=== PATIENT | male | born 1960 | race African-American/Black ===

== ENCOUNTER 2019-05-29 07:15 | Inpatient (IN) | payer MEDICAID ==
[~2019-05-29] VITALS: Ht 177.8 cm; Wt 68.0 kg
[2019-05-29] MEDS ORDERED: LEVETIRACETAM 1000MG/100ML 100 ML IV ONE (08:15)
[2019-05-29] MEDS ORDERED: HYDRALAZINE 20MG/ML VIAL IV ONE ×2 (08:15→14:00)
[2019-05-29 09:21] LABS: CHLORIDE 112 mEq/L (98-107)
[2019-05-29 09:34] LABS: ETHANOL BLOOD < 10 mg/dL; PHENOBARBITAL < 2.1 ug/mL (15.0-40.0); VALPROIC ACID < 3.0 ug/mL (50-100)
[2019-05-29 09:39] LABS: CARBAMAZEPINE < 0.5 ug/mL (4-12)
[2019-05-29] MEDS ORDERED: LORAZEPAM 2MG/ML CPJ IM STA (10:29)
[2019-05-29 10:50] LABS: BASOPHILS % 0.2 % (0.0-2.0); EOSINOPHILS % 0.1 % (0.0-5.0); HEMATOCRIT. 37.3 % (42.0-52.0); HEMOGLOBIN. 11.8 g/dL (14.0-18.0); LYMPHOCYTES % 13.9 % (20.0-50.0); MEAN CORPUSCULAR HEMOGLOBIN 25.5 pg (28.0-32.0); MEAN CORPUSCULAR VOLUME 80.4 fL (80.0-94.0); MEAN PLATELET VOLUME 9.9 fl (7.4-10.4); MONOCYTES % 6.8 % (2.0-8.0); RED BLOOD CELL COUNT 4.64 mill/uL (4.7-6.1); RED CELL DISTRIBUTION WIDTH 17.9 % (11.6-14.6)
[2019-05-29 10:51] LABS: PLATELET 190 x1000/uL (130-400)
[2019-05-29 10:57] LABS: CHLORIDE 109 mEq/L (98-107)
[2019-05-29 11:01] LABS: ETHANOL BLOOD < 10 mg/dL
[2019-05-29 11:06] LABS: CARBAMAZEPINE < 0.5 ug/mL (4-12); PHENOBARBITAL < 2.1 ug/mL (15.0-40.0)
[2019-05-29] MEDS ORDERED: DOCUSATE SODIUM 100MG CAPSULE PO PRN (13:15)
[2019-05-29] MEDS ORDERED: LORAZEPAM 2MG/ML CPJ IV PRN (13:15)
[2019-05-29] MEDS ORDERED: HYDROCODONE/ACETAMINOPHEN 5/325MG TABLET PO PRN (13:15)
[2019-05-29] MEDS ORDERED: ACETAMINOPHEN 325MG TABLET PO PRN (13:15)
[2019-05-29] MEDS ORDERED: MAGNESIUM/ALUMINUM HYDROXIDE/SIMETHICONE 30ML UDC PO PRN (13:15)
[2019-05-29] MEDS ORDERED: ONDANSETRON HCL 4MG/2ML INJ IV PRN (13:15)
[2019-05-29] MEDS ORDERED: CLONIDINE 0.1MG TABLET PO PRN (13:15)
[2019-05-29] MEDS ORDERED: AMLODIPINE 5MG TABLET PO SCH (13:30)
[2019-05-29] MEDS ORDERED: ENOXAPARIN 40MG/0.4ML SYR SUBCUT SCH (14:00)
[2019-05-29 23:57] LABS: CLARITY URINE CLEAR (CLEAR); COLOR URINE YELLOW (YELLOW); KETONES URINE TRACE (NEGATIVE); LEUKOCYTE ESTERASE URINE TRACE (NEGATIVE); NITRITE URINE POSITIVE (NEGATIVE); OCCULT BLOOD URINE NEGATIVE (NEGATIVE); PROTEIN URINE NEGATIVE (NEGATIVE); SPECIFIC GRAVITY URINE 1.012 (1.005-1.030); UROBILINOGEN URINE 0.2 E.U./dL (0.2-1.0)
[2019-05-30] MEDS ORDERED: METOPROLOL TARTRATE 50MG TABLET PO SCH ×2 (06:19→18:19)
[2019-05-30] MEDS ORDERED: AMLODIPINE 5MG TABLET PO SCH ×2 (06:20→18:17)
[2019-05-30 08:34] LABS: BASOPHILS % 0.5 % (0.0-2.0); HEMATOCRIT. 37.7 % (42.0-52.0); HEMOGLOBIN. 12.3 g/dL (14.0-18.0); MEAN CORPUSCULAR HEMOGLOBIN 25.8 pg (28.0-32.0); MEAN PLATELET VOLUME 10.4 fl (7.4-10.4); MONOCYTES % 7.7 % (2.0-8.0); NEUTROPHILS % 80.8 % (40.0-76.0); PLATELET 177 x1000/uL (130-400); RED BLOOD CELL COUNT 4.77 mill/uL (4.7-6.1); RED CELL DISTRIBUTION WIDTH 17.4 % (11.6-14.6)
[2019-05-30 08:41] LABS: CHLORIDE 109 mEq/L (98-107)
[2019-05-30 08:50] LABS: PHOSPHORUS 3.5 mg/dL (2.5-4.9)
[2019-05-30 08:51] LABS: LDL CHOLESTEROL 53 mg/dL (5-100)
[2019-05-30 08:57] LABS: HDL CHOLESTEROL 46 mg/dL (40-59)
[2019-05-30] MEDS ORDERED: CEFTRIAXONE 1 G PREMIX 50 ML IV SCH (11:00)
[2019-05-30] MEDS ORDERED: LISINOPRIL 5MG TABLET PO SCH (11:30)
[2019-05-30 14:04] LABS: CREATINE KINASE MB FRACTION 2.5 ng/mL (0.5-3.6)
[2019-05-30 15:20] VITALS: BP 171/99
[2019-05-30 16:00] VITALS: BP 171/99
[2019-05-30] MEDS ORDERED: AMLO5TAB88 MT (16:28)
[2019-05-30] MEDS ORDERED: LEVO500T2 MT (16:28)
[2019-05-30] MEDS ORDERED: KEPP500 MT (16:28)
[2019-05-30] MEDS ORDERED: LISI-604 MT (16:28)
[2019-05-30 17:50] VITALS: BP 177/103
[2019-05-30] MEDS ORDERED: LISINOPRIL 20MG TABLET PO SCH (18:18)
[2019-05-30 20:00] VITALS: BP 158/98
[2019-05-30] MEDS ORDERED: LEVETIRACETAM 500MG TABLET PO SCH (21:00)
[2019-05-31] MEDS ORDERED: CEFTRIAXONE 1 G PREMIX 50 ML IV SCH (11:00)
== END 2019-05-30 22:06 | disposition left against medical advice (07) | DRG 720 ==
LOC: ER 07:15 → 5WST 10:43 → ENRESERV 05-30 14:19 → CANRESERV 05-30 14:19 → ENRESERV 05-30 14:23 → 5WST 05-30 16:10
PROVIDERS: ADMIT Internal Medicine; ATTEND Internal Medicine
DX: A41.9 Sepsis, unspecified organism (principal); E87.8 Other disorders of electrolyte and fluid balance, not elsewhere classified; M62.82 Rhabdomyolysis; N39.0 Urinary tract infection, site not specified; G40.909 Epilepsy, unspecified, not intractable, without status epilepticus; I10 Essential (primary) hypertension; I16.0 Hypertensive urgency; D64.9 Anemia, unspecified; Z91.14 Patient's other noncompliance with medication regimen
CPT/HCPCS: 36415; 80048; 80053; 80061; 80156; 80165; 80184; 80185; 80320; 81003; 82550; 82553; 83735; 84100; 84439; 84443; 84484; 85025; 87077; 87186; 93970; 96365; 99285; J0360; J0696; J1650; J1953; J2060; G0480